=== PATIENT | female | born 1950 | race Caucasian/White ===

== ENCOUNTER → 2016-03-22 | Outpatient (CLI) | payer OTHER ==
[~2016-03-22] MED LIST: GLIM2TAB PO; LISI-519 PO; METF1000 PO; MULT-135 PO; OMEP20TA PO; PAXI20TA PO; VITA200013 PO
--- NOTE | 2016-03-22 10:51 | RADRPT ---
EXAM DATE/TIME: 03/22/2016 10:31 [facility] COMPARISON: No previous studies available for comparison. INDICATIONS : Evaluate for pneumonia, pneumothorax or communicable disease. Pre op for cyst removal on her left ov sunil 04-05-16 MEDICAL HISTORY : None. SURGICAL HISTORY : None. ENCOUNTER: Initial ACUITY: 1 day PAIN SCORE: 0/10 LOCATION: Bilateral chest FINDINGS: PA and lateral views of the chest demonstrate the lungs to be symmetrically aerated without evidence of mass, infiltrate or effusion. The cardiomediastinal contours are unremarkable. Osseous structure s are intact with mild scoliosis. Mild atherosclerotic calcifications are present in the aorta. CONCLUSION: No acute cardiopulmonary disease. Kenny Davis MD on March 22, 2016 at 10:50 Board Certified Radiologist. This report was verified electronically.
[2016-03-22 11:07] LABS: APTT (PATIENT) 26.4 SEC (24.3-30.1); INTERNATIONAL NORMALIZED RATIO 0.9 RATIO; PROTHROMBIN TIME - PATIENT 10.3 SEC (9.8-11.6)
[2016-03-22 11:09] LABS: BASOPHIL # 0.1 TH/MM3 (0-0.2); BASOPHIL % 0.9 % (0.0-2.0); EOSINOPHIL # 0.2 TH/MM3 (0-0.4); EOSINOPHIL % 1.5 % (0.0-4.0); HEMATOCRIT 39.2 % (35.0-46.0); HEMO FLAGS DIFF FINAL; LYMPH % 21.8 % (9.0-44.0); LYMPHOCYTE # 2.2 TH/MM3 (1.0-4.8); MEAN CELL VOLUME 90.2 FL (80.0-100.0); MEAN CORPUSCULAR HEMOGLOBIN 30.2 PG (27.0-34.0); MEAN CORPUSCULAR HGB CONC 33.4 % (32.0-36.0); MONO % 7.3 % (0.0-8.0); NEUT % 68.5 % (16.0-70.0); PLATELET COUNT 331 TH/MM3 (150-450); RED BLOOD COUNT 4.34 MIL/MM3 (4.00-5.30); RED CELL DISTRIBUTION WIDTH 13.8 % (11.6-17.2); WHITE BLOOD COUNT 10.2 TH/MM3 (4.0-11.0)
[2016-03-22 11:15] LABS: ALKALINE PHOSPHATASE 94 U/L (45-117); ALT (GPT) 97 U/L (10-53); ANION GAP 6 MEQ/L (5-15); AST (GOT) 61 U/L (15-37); BICARBONATE 28.9 MEQ/L (21.0-32.0); BLOOD UREA NITROGEN 17 MG/DL (7-18); CHLORIDE 102 MEQ/L (98-107); GLOMERULAR FILTRATION RATE 75 ML/MIN (>89); GLUCOSE,FASTING 121 MG/DL (74-99); POTASSIUM 4.2 MEQ/L (3.5-5.1); SODIUM (NA) 137 MEQ/L (136-145); TOTAL BILIRUBIN ADULT 0.4 MG/DL (0.2-1.0)
--- NOTE | 2016-03-22 13:39 | EKG ---
Date Performed: 03/22/2016 Time Performed: 09:56:33 PTAGE: 65 years EKG: Sinus rhythm RIGHT BUNDLE BRANCH BLOCK LEFT ANTERIOR FASCICULAR BLOCK MINIMAL VOLTAGE CRITERIA FOR LVH, CONSIDER NORMAL VARIANT POSSIBLE SEPTAL MYOCARDIAL INFARCTION, PROBABLY OLD ABNORMAL ECG NO PREVIOUS TRACING DOCTOR: Silvano Padilla Interpretating Date/Time 03/22/2016 13:37:31
== END ==
LOC: CPRE 09:20
PROVIDERS: ATTEND Obstetrics & Gynecology Gynecologic Oncology
DX: Z01.812 Encounter for preprocedural laboratory examination (principal); Z01.810 Encounter for preprocedural cardiovascular examination; Z01.811 Encounter for preprocedural respiratory examination; R19.09 Other intra-abdominal and pelvic swelling, mass and lump; I45.10 Unspecified right bundle-branch block; I44.4 Left anterior fascicular block; R94.31 Abnormal electrocardiogram [ECG] [EKG]
CPT/HCPCS: 36415; 71020; 80053; 85025; 85610; 85730; 93005

== ENCOUNTER 2016-05-03 05:29 | Inpatient (IN) | payer OTHER, MEDICARE ==
[~2016-05-03] VITALS: Ht 172.7 cm; Wt 76.6 kg
[2016-05-03] MEDS ORDERED: HEPARIN SODIUM - SQ 10,000 UNITS/ML VIAL SQ SCH (06:00)
[2016-05-03] MEDS ORDERED: METOPROLOL TARTRATE 25 MG TAB PO PRN (06:00)
[2016-05-03] MEDS ORDERED: INSULIN HUMAN REGULAR 1,000 UNITS/10 ML VIAL SQ PRN (06:00)
[2016-05-03] MEDS ORDERED: ceFAZolin 2 GM PREMIX 50 ML IV SCH (06:00)
[2016-05-03] MEDS: LACTATED RINGER'S 1000 ML IV SCH (06:10)
[2016-05-03 06:22] VITALS: BP 125/65; PULSE 67; RESP 16; TEMP 98; O2SAT 94
[2016-05-03 06:36] LABS: AUTOMATED NEUTROPHIL # 6.2 TH/MM3 (1.8-7.7); BASOPHIL # 0.1 TH/MM3 (0-0.2); EOSINOPHIL # 0.2 TH/MM3 (0-0.4); EOSINOPHIL % 2.4 % (0.0-4.0); HEMATOCRIT 37.7 % (35.0-46.0); HEMO FLAGS DIFF FINAL; LYMPH % 23.3 % (9.0-44.0); LYMPHOCYTE # 2.2 TH/MM3 (1.0-4.8); MEAN CELL VOLUME 90.4 FL (80.0-100.0); MEAN CORPUSCULAR HGB CONC 33.2 % (32.0-36.0); NEUT % 65.3 % (16.0-70.0); PLATELET COUNT 279 TH/MM3 (150-450); RED BLOOD COUNT 4.17 MIL/MM3 (4.00-5.30); RED CELL DISTRIBUTION WIDTH 13.6 % (11.6-17.2); WHITE BLOOD COUNT 9.5 TH/MM3 (4.0-11.0)
[2016-05-03 06:49] LABS: APTT (PATIENT) 27.5 SEC (24.3-30.1); PROTHROMBIN TIME - PATIENT 10.7 SEC (9.8-11.6)
[2016-05-03 06:54] LABS: ALKALINE PHOSPHATASE 78 U/L (45-117); TOTAL BILIRUBIN ADULT 0.5 MG/DL (0.2-1.0)
[2016-05-03] MEDS ORDERED: DEXAMETHASONE SOD PHOS 4 MG/ML VIAL ONE (07:20)
[2016-05-03] MEDS ORDERED: MIDAZOLAM HCL 2 MG/2 ML VIAL ONE (07:20)
[2016-05-03] MEDS ORDERED: FAMOTIDINE 20 MG/2 ML VIAL ONE (07:20)
[2016-05-03 07:21] LABS: ALT (GPT) 108 U/L (10-53); ANION GAP 9 MEQ/L (5-15); AST (GOT) 85 U/L (15-37); BLOOD UREA NITROGEN 17 MG/DL (7-18); CHLORIDE 106 MEQ/L (98-107); GLOMERULAR FILTRATION RATE 88 ML/MIN (>89); SODIUM (NA) 140 MEQ/L (136-145)
[2016-05-03] MEDS ORDERED: HYDROmorphone HCL PF 2 MG/ML VIAL ONE (07:21)
[2016-05-03] MEDS ORDERED: ACETAMINOPHEN 1000 MG/100 ML VIAL IV ONE ×3 (07:21→18:30)
[2016-05-03] MEDS ORDERED: DICLOFENAC SODIUM 37.5 MG/ML VIAL IV PUSH ONE (07:21)
[2016-05-03] MEDS: SODIUM CHLORID 0.9% 500 ML IV SCH (07:30)
[2016-05-03] MEDS ORDERED: LIDOCAINE 1%/EPINEPHrine 1:100,000 SOLN 30 ML VIAL INFIL ONE (08:30)
[2016-05-03] MEDS ORDERED: diphenhydrAMINE HCL 25 MG CAP PO PRN (10:15)
[2016-05-03] MEDS ORDERED: oxyCODONE/ACETAMINOPHEN 5 MG/325 MG TAB PO PRN (10:15)
[2016-05-03] MEDS ORDERED: ONDANSETRON HCL 4 MG/2 ML VIAL IVP PRN (10:15)
[2016-05-03] MEDS ORDERED: SODIUM CHLORIDE 0.9% FLUSH 10 ML FLUSH IV FLUSH PRN (10:15)
[2016-05-03] MEDS ORDERED: PILL SPLITTER OTHER PRN (10:30)
[2016-05-03] MEDS ORDERED: *RESP: ALBUTEROL 2.5 MG/3 ML NEB (PRN) PERIprocedural Use ONLY NEB ONE ×2 (10:51→15:54)
[2016-05-03 10:55] VITALS: O2SAT 97
[2016-05-03] MEDS ORDERED: D5-1/2 NS + KCL 20 MEQ INJ 1,000 ML IV SCH (11:00)
[2016-05-03] MEDS: KETOROLAC TROMETHAMINE 30 MG/ML (IVP) VIAL IVP SCH (11:00)
[2016-05-03] MEDS ORDERED: FUROSEMIDE 20 MG/2 ML VIAL ONE (11:01)
[2016-05-03 11:02] VITALS: O2SAT 95
[2016-05-03] MEDS ORDERED: fentaNYL CITRATE 250 MCG/5 ML AMP ONE (11:03)
[2016-05-03] MEDS ORDERED: FUROSEMIDE 20 MG/2 ML VIAL IV PUSH ONE (11:30)
--- NOTE | 2016-05-03 11:31 | RADRPT ---
EXAM DATE/TIME: 05/03/2016 10:51 [facility] COMPARISON: CHEST PA & LAT, March 22, 2016, 10:31. INDICATIONS : Low O2 saturations post op laporotomy MEDICAL HISTORY : None. SURGICAL HISTORY : robot laporotomy to resect mass ENCOUNTER: Initial ACUITY: 1 day PAIN SCORE: Non-responsive. LOCATION: Bilateral chest FINDINGS: A single view of the chest demonstrates interval development of diffuse interstitial prominence possi ria representing some degree of interstitial edema or vascular congestion. Minimal atelectatic change s in the left lingula and right lung base. Rounded density in the right upper lobe may be related to the costochondral junction of the anterior first rib. Osseous structures are otherwise intact heart s ize is normal CONCLUSION: 1. Interval element of bilateral interstitial prominence possibly representing some degree of interst itial edema and/or volume overload. 2. Minimal atelectatic changes above the right hemidiaphragm and left lingular regions. 3. Dense rounded structure in the right upper lobe may be related to the costochondral junction of th e anterior first rib. Isaiah Veronica MD on May 03, 2016 at 11:24 Board Certified Radiologist. This report was verified electronically.
[2016-05-03 11:53] LABS: BLOOD GAS BASE EXCESS -2.2 mmol/L (-2-2); BLOOD GAS CARBOXYHEMOGLOBIN 1.1 % (0-4); BLOOD GAS HCO3 24 mmol/L (22-26); BLOOD GAS METHEMOGLOBIN 1.7 % (0-2); BLOOD GAS O2 HGB SATURATION 91 % (90-100); BLOOD GAS OXYGEN CONTENT 17.2 Vol % (12.0-20.0); BLOOD GAS PCO2 51 mmHg (38-42); BLOOD GAS PO2 83 mmHg (61-120); BLOOD GAS TOTAL HGB 13.3 G/DL (12.0-16.0); CRITICAL VALUE YES; DRAW SITE RT RADIAL; FIO2 100 %; NUMBER OF ARTERIAL PUNCTURES 1; OXYGEN DEVICE BiPAP; STAT YES; TEMP CORR TO 98.6; ULNAR PULSE PRESENT; VENT SETTINGS IPAP 15 EPAP 5 PS 10
[2016-05-03] MEDS ORDERED: SODIUM CHLOR 0.9% 1000 ML INJ 1,000 ML IV ONE (12:00)
[2016-05-03] MEDS ORDERED: SUGAMMADEX SODIUM 200 MG/2 ML VIAL IV PUSH ONE ×2 (12:00)
[2016-05-03] MEDS ORDERED: ONDANSETRON HCL 4 MG/2 ML VIAL IV PUSH ONE (12:00)
[2016-05-03] MEDS ORDERED: PROPOFOL 200 MG/20 ML AMP IV ONE (12:00)
[2016-05-03] MEDS ORDERED: DIMETHICONE/OXYBENZONE/PADMIATE LIP BALM 4.25 GM ONE (14:35)
[2016-05-03] MEDS ORDERED: MAGNESIUM OXIDE 400 MG TAB PO PRN (15:00)
[2016-05-03] MEDS ORDERED: POTASSIUM PHOSPHATE MONOBASIC 500 MG TAB PO PRN (15:00)
[2016-05-03] MEDS ORDERED: POTASSIUM PHOSPHATE MONOBASIC 500 MG TAB PO/TUBE PRN (15:00)
[2016-05-03] MEDS ORDERED: POTASSIUM CHLOR 20 MEQ PREMIX 100 ML IV PRN ×2 (15:00)
[2016-05-03] MEDS ORDERED: MAGNESIUM SULFATE INJ 2 GM in SODIUM CHLORIDE 0.9% INJ 96 ML IV PRN (15:00)
[2016-05-03] MEDS ORDERED: POTASSIUM PHOSPHATE INJ 30 MMOL in SODIUM CHLOR 0.9% 250 ML INJ 250 ML IV PRN (15:00)
[2016-05-03] MEDS ORDERED: POTASSIUM CHLOR 40 MEQ PREMIX 100 ML IV PRN ×2 (15:00)
[2016-05-03] MEDS ORDERED: DEXTROSE 50% IN WATER 50 ML VIAL(D50) IV PUSH PRN (15:00)
[2016-05-03] MEDS ORDERED: SODIUM PHOSPHATE INJ 30 MMOL in SODIUM CHLOR 0.9% 250 ML INJ 240 ML IV PRN (15:00)
[2016-05-03] MEDS ORDERED: MAGNESIUM SULFATE INJ 4 GM in SODIUM CHLORIDE 0.9% INJ 92 ML IV PRN (15:00)
--- NOTE | 2016-05-03 15:07 | PD.CONS ---
[facility] Service Critical Care Medicine Consult Requested By Dr. Zacarias Reason for Consult post-op hypoxia Primary Care Physician Ju Jarrett M.D. History of Present Illness This is a 65yF with past medical history significant for diabetes, prior smoking use, and ovarian mass who is now postop day 0 status post laparoscopic salpingo-oophorectomy. At the conclusion of the operative case she was extubated and taken to PACU where she was noted to be cyanotic with SPO2 in the 40s. She was noted to be obstructing. She was placed on oxygen. Despite this she remained hypoxic and was placed on a BiPAP mask which improved her hypoxia. Stat chest x-ray revealed bilateral infiltrates significant for probable pulmonary edema. She continued slowly improve on BiPAP, but continued to desat off BiPAP. Anesthesia's clinical impression was that this was christine-emergence laryngospasm with associated negative pressure pulmonary edema. She was given a dose of Lasix in the PACU and had appropriate diuresis with this. Critical- care medicine is consulted to evaluate and manage her hypoxemia. The anesthesia and surgery teams feel that an ICU stay is warranted with noninvasive positive pressure ventilation overnight. I agree with this assessment. When I evaluated the patient, she was awake and alert. She denied any chest pain, shortness of breath. She doesn't endorse mild generalized abdominal pain. She denies other complaints. It is somewhat difficult to understand the patient given that she is wearing BiPAP at the moment and is slightly tachypneic Review of Systems Constitutional: DENIES: Diaphoretic episodes, Fever, Chills Respiratory: DENIES: Cough, Sputum production, Shortness of breath Cardiovascular: DENIES: Chest pain, Syncope, Lower Extremity Edema Gastrointestinal: COMPLAINS OF: Abdominal pain, DENIES: Nausea, Vomiting Psychiatric: DENIES: Anxiety Past Family Social History Allergies: Coded Allergies: No Known Allergies (Unverified , 03/22/16) Past Medical History Diabetes Past Surgical History Remote history of tubal ligation Postop day 0 status post salpingo-oophorectomy Reported Medications Metformin Active Ordered Medications See MAR Family History No family history of lung disease Social History Prior smoker and quit approximately 2 months ago. A glass of wine very rarely. Denies other drugs. Physical Exam Vital Signs Vital Signs Date Time Temp Pulse Resp B/P Pulse Ox O2 Delivery O2 Flow Rate FiO2 05/03/16 14:00 79 12 128/79 95 Bi-Pap 50 05/03/16 13:00 75 12 125/70 95 Bi-Pap 50 05/03/16 12:00 80 10 139/75 95 Bi-Pap 100 05/03/16 11:45 87 10 147/83 93 Bi-Pap 100 05/03/16 11:30 88 10 153/83 93 Bi-Pap 100 05/03/16 11:15 88 10 150/88 94 Bi-Pap 100 05/03/16 11:02 95 100 05/03/16 11:00 90 10 153/84 96 Bi-Pap 100 05/03/16 10:55 97 100 05/03/16 10:45 95 8 164/84 85 Non-Rebreather 100 05/03/16 10:34 95 8 86 Non-Rebreather 100 05/03/16 10:30 95 8 157/82 79 Simple Mask 10 05/03/16 10:28 97.7 97 8 186/85 82 Simple Mask 10 05/03/16 06:22 98.0 67 16 125/65 94 Physical Exam GENERAL: Elderly female, lying in bed, mild distress due to hypoxia HEENT:. atraumatic. pupils equal, round, reactive, conjugate. mucous membranes are moist. bipap is in place NECK: Trachea is midline. There is no JVD. CHEST: Mildly labored respirations. Mildly tachypneic. Clear to auscultation. BiPAP 15/8/40% CARDIOVASCULAR: Normal rate, regular rhythm. No appreciable murmurs. ABDOMEN: Abdomen is soft, mildly and appropriately tender to palpation. There is no rebound or guarding. She has evidence of small laparoscopic incisions with Steri-Strips. These are clean, dry. MUSCULOSKELETAL: No peripheral edema. Distal pulses 2+. Extremities are warm and well-perfused. NEUROLOGICAL: RASS 0. Follows commands all 4 extremity's. No focal motor or sensory deficits. Laboratory Laboratory Tests Test 05/03/16 05/03/16 06:10 11:47 White Blood Count 9.5 Red Blood Count 4.17 Hemoglobin 12.5 Hematocrit 37.7 Mean Corpuscular Volume 90.4 Mean Corpuscular Hemoglobin 30.0 Mean Corpuscular Hemoglobin 33.2 Concent Red Cell Distribution Width 13.6 Platelet Count 279 Mean Platelet Volume 8.5 Neutrophils (%) (Auto) 65.3 Lymphocytes (%) (Auto) 23.3 Monocytes (%) (Auto) 8.0 Eosinophils (%) (Auto) 2.4 Basophils (%) (Auto) 1.0 Neutrophils # (Auto) 6.2 Lymphocytes # (Auto) 2.2 Monocytes # (Auto) 0.8 Eosinophils # (Auto) 0.2 Basophils # (Auto) 0.1 CBC Comment DIFF FINAL Differential Comment Prothrombin Time 10.7 Prothromb Time International 1.0 Ratio Activated Partial 27.5 Thromboplast Time Sodium Level 140 Potassium Level 4.0 Chloride Level 106 Carbon Dioxide Level 25.0 Anion Gap 9 Blood Urea Nitrogen 17 Creatinine 0.67 Estimat Glomerular Filtration 88 Rate Random Glucose 158 Calcium Level 9.1 Total Bilirubin 0.5 Aspartate Amino Transf 85 (AST/SGOT) Alanine Aminotransferase 108 (ALT/SGPT) Alkaline Phosphatase 78 Total Protein 7.5 Albumin 3.8 Blood Type O POSITIVE Antibody Screen NEGATIVE Blood Bank Comment Blood Gas Puncture Site RT RADIAL Blood Gas Patient Temperature 98.6 Blood Gas HCO3 24 Blood Gas Base Excess -2.2 Blood Gas Oxygen Saturation 91 Arterial Blood pH 7.28 Arterial Blood Partial 51 Pressure CO2 Arterial Blood Partial 83 Pressure O2 Arterial Blood Oxygen Content 17.2 Arterial Blood 1.1 Carboxyhemoglobin Arterial Blood Methemoglobin 1.7 Blood Gas Hemoglobin 13.3 Oxygen Delivery Device BiPAP Blood Gas Ventilator Setting IPAP 15 EPAP 5 PS 10 Blood Gas Inspired Oxygen 100 Result Diagram: 05/03/16 0610 05/03/16 0610 Imaging Last 24 hours Impressions Chest X-Ray 05/03/16 0000 Signed Impressions: Service Date/Time: April 10:51 - CONCLUSION: 1. Interval element of bilateral interstitial prominence possibly representing some degree of interstitial edema and/or volume overload. 2. Minimal atelectatic changes above the right hemidiaphragm and left lingular regions. 3. Dense rounded structure in the right upper lobe may be related to the costochondral junction of the anterior first rib. Isaiah Veronica MD Assessment and Plan Assessment and Plan Assessment: This is a 65-year-old female who is now postop day 0 status post laparoscopic salpingo-oophorectomy whose course has been complicated by perioperative hypoxemia which by clinical history is likely to be laryngospasm with associated negative pressure pulmonary edema. The patient is already clinically improving on noninvasive positive pressure ventilation. I agree with the gentle diuresis as is been instituted in the PACU and with continued noninvasive positive pressure ventilation. I agree that she should be watched in the intensive care unit setting overnight. Active problems: Negative pressure pulmonary edema Acute hypoxic respiratory failure requiring noninvasive positive pressure ventilation Diabetes Hyperglycemia of Critical Illness Plan: Admit to the ICU Continue BiPAP at current settings as these are helping to clinically improve the patient Clear liquid diet Given her elevated blood glucose level, we will start medium scale sliding scale insulin every 6 hours We will stop her maintenance fluids as we are attempting gentle diuresis Continue Todd for tonight with anticipation of discontinuing this in the morning Head of bed at 60-90 at all times We will consider a re-dose of Lasix later this evening, but she has had good response is recently postoperative do not want to over diuresis her. There is no evidence that steroids improve negative pressure pulmonary edema and by clinical exam, there was no laryngeal edema reported by the anesthesiologist. Given her diabetes I think the risk-benefit ratios in favor of holding off on steroids at this time. Code Status Full Code Discussed Condition With Attending anesthesiologist, surgical team, BULK SAUSAGE CASING TIER OFF, PACU activity therapy teacher. Edmundo Kaur MD May 03, 2016 15:07
[2016-05-03] MEDS: INSULIN NovoLIN REGULAR SUPPLEMENTAL SCALE SQ SCH (18:00)
[2016-05-03] MEDS: LORazepam 0.5 MG TAB PO PRN (19:10)
[2016-05-03] MEDS: SODIUM CHLORIDE 0.9% FLUSH 10 ML FLUSH IV FLUSH SCH (21:00)
[2016-05-03] MEDS: PANTOPRAZOLE SOD 20 MG DELAYED RELEASE TAB PO SCH (21:00)
[2016-05-04] VITALS (9 sets, daily range): BP systolic 105–128; BP diastolic 53–77; PULSE 78–86; RESP 17–21; TEMP 96.7–98.6; O2SAT 92–98
[2016-05-04] MEDS: SODIUM CHLORID 0.9% 500 ML IV SCH (00:10)
[2016-05-04 04:10] LABS: AUTOMATED NEUTROPHIL # 13.2 TH/MM3 (1.8-7.7); BASOPHIL % 0.3 % (0.0-2.0); EOSINOPHIL % 0.1 % (0.0-4.0); HEMATOCRIT 34.5 % (35.0-46.0); HEMO FLAGS DIFF FINAL; LYMPH % 13.7 % (9.0-44.0); LYMPHOCYTE # 2.2 TH/MM3 (1.0-4.8); MEAN CORPUSCULAR HEMOGLOBIN 29.8 PG (27.0-34.0); MEAN CORPUSCULAR HGB CONC 32.7 % (32.0-36.0); MONO % 4.7 % (0.0-8.0); NEUT % 81.2 % (16.0-70.0); PLATELET COUNT 254 TH/MM3 (150-450); RED BLOOD COUNT 3.79 MIL/MM3 (4.00-5.30); RED CELL DISTRIBUTION WIDTH 13.7 % (11.6-17.2); WHITE BLOOD COUNT 16.3 TH/MM3 (4.0-11.0)
[2016-05-04 04:34] LABS: BICARBONATE 29.7 MEQ/L (21.0-32.0); POTASSIUM 4.2 MEQ/L (3.5-5.1)
[2016-05-04] MEDS: KETOROLAC TROMETHAMINE 30 MG/ML (IVP) VIAL IVP SCH (05:00)
--- NOTE | 2016-05-04 05:30 | RADRPT ---
EXAM DATE/TIME: 05/04/2016 03:44 [facility] COMPARISON: CHEST SINGLE AP, May 03, 2016, 10:51. INDICATIONS : Evaluate for atelectasis. MEDICAL HISTORY : None. SURGICAL HISTORY : robot laporotomy to resect mass ENCOUNTER: Subsequent ACUITY: 2 days PAIN SCORE: 0/10 LOCATION: chest FINDINGS: A single portable frontal view of the chest shows persistent interstitial prominence of the lungs mor e pronounced within the left base. There has been some improvement in the appearance. Linear atelecta sis within the medial left lung base. No effusions observed. Cardiac silhouette is at the upper range of normal. Mild scoliotic curvature of the thoracic spine. CONCLUSION: Some improvement in the interstitial prominence. Pulmonary edema most likely the etiology. Mild left basilar atelectasis. Aftab Barakat Jr., MD on May 04, 2016 at 5:27 Board Certified Radiologist. This report was verified electronically.
[2016-05-04] MEDS: INSULIN NovoLIN REGULAR SUPPLEMENTAL SCALE SQ SCH ×5 (06:00→22:37)
[2016-05-04] MEDS ORDERED: FUROSEMIDE 40 MG/4 ML VIAL IV PUSH ONE (06:30)
[2016-05-04] MEDS: LACTATED RINGER'S 1000 ML IV SCH (07:30)
[2016-05-04] MEDS: ACETAMINOPHEN 325 MG TAB PO PRN (07:58)
[2016-05-04] MEDS: PARoxetine HCL 20 MG TAB PO SCH (08:58)
[2016-05-04] MEDS: PANTOPRAZOLE SOD 20 MG DELAYED RELEASE TAB PO SCH ×2 (08:59→20:43)
[2016-05-04] MEDS: SODIUM CHLORIDE 0.9% FLUSH 10 ML FLUSH IV FLUSH SCH ×2 (08:59→20:49)
[2016-05-04] MEDS: LISINOPRIL 5 MG TAB PO SCH (08:59)
--- NOTE | 2016-05-04 15:05 | HHI.CCPN ---
Subjective Remarks/Hospital Course Hospital Course: This is a 65yF with past medical history significant for diabetes, prior smoking use, and ovarian mass who is now postop day 0 status post laparoscopic salpingo-oophorectomy. At the conclusion of the operative case she was extubated and taken to PACU where she was noted to be cyanotic with SPO2 in the 40s. She was noted to be obstructing. She was placed on oxygen. Despite this she remained hypoxic and was placed on a BiPAP mask which improved her hypoxia. Stat chest x-ray revealed bilateral infiltrates significant for probable pulmonary edema. She continued slowly improve on BiPAP, but continued to desat off BiPAP. Anesthesia's clinical impression was that this was christine-emergence laryngospasm with associated negative pressure pulmonary edema. She was given a dose of Lasix in the PACU and had appropriate diuresis with this. Critical- care medicine is consulted to evaluate and manage her hypoxemia. The anesthesia and surgery teams feel that an ICU stay is warranted with noninvasive positive pressure ventilation overnight. I agree with this assessment. When I evaluated the patient, she was awake and alert. She denied any chest pain, shortness of breath. She doesn't endorse mild generalized abdominal pain. She denies other complaints. It is somewhat difficult to understand the patient given that she is wearing BiPAP at the moment and is slightly tachypneic Subjective: 05/04: much improved oxygenation. off BiPAP. remains on 2L o2 by NC with spo2 91% . still slightly net +. adding additional lasix. Objective Vital Signs Date Time Temp Pulse Resp B/P Pulse Ox O2 Delivery O2 Flow Rate FiO2 05/04/16 12:00 98.6 84 20 105/59 95 05/04/16 05:55 Nasal Cannula 4 05/03/16 18:00 40 Intake and Output 05/03/16 05/03/16 05/04/16 08:00 16:00 00:00 Intake Total 2143 ml 275 ml Output Total 880 ml 240 ml Balance 1263 ml 35 ml Result Diagram: 05/04/16 0344 05/04/16 0344 Imaging Last 24 hours Impressions Chest X-Ray 05/03/16 0000 Signed Impressions: Service Date/Time: April 10:51 - CONCLUSION: 1. Interval element of bilateral interstitial prominence possibly representing some degree of interstitial edema and/or volume overload. 2. Minimal atelectatic changes above the right hemidiaphragm and left lingular regions. 3. Dense rounded structure in the right upper lobe may be related to the costochondral junction of the anterior first rib. Isaiah Veronica MD Objective Remarks GENERAL: Elderly female,sitting up in bed, no acute distress. HEENT:. atraumatic. pupils equal, round, reactive, conjugate. mucous membranes are moist. NECK: Trachea is midline. There is no JVD. CHEST: unlabored. CTA. 2L o2. CARDIOVASCULAR: Normal rate, regular rhythm. No appreciable murmurs. ABDOMEN: Abdomen is soft, mildly and appropriately tender to palpation. There is no rebound or guarding. MUSCULOSKELETAL: No peripheral edema. Distal pulses 2+. Extremities are warm and well-perfused. NEUROLOGICAL: RASS 0. Follows commands all 4 extremities. A/P Assessment and Plan Assessment: This is a 65-year-old female POD 1 s/p laparoscopic salpingo- oophorectomy, course complicated by negative pressure pulmonary edema on emergence of anesthesia. Clinically improving. I am not sure if she will be able to go home today as she still has a slight o2 requirement. We will give additional dose of lasix today and monitor her. I think she is stable for transfer to floor today. I have discussed this with Dr. Zacarias who agrees. Active problems: Negative pressure pulmonary edema- resolving. Acute hypoxic respiratory failure requiring noninvasive positive pressure ventilation- resolved. Diabetes Hyperglycemia of Critical Illness Plan: --transfer to floor --wean o2 by NC for goal spo2 > 90%. -- regular diet as tolerated. -- SSI, med scale, ACHS. -- will need outpatient follow up with non-contrasted Chest CT for ? right upper lobe mass. -- Lasix 40mg iv x 1 this morning. Edmundo Kaur MD May 04, 2016 15:05
[2016-05-04] MEDS: oxyCODONE/ACETAMINOPHEN 5 MG/325 MG TAB PO PRN ×2 (18:42→22:46)
[2016-05-05] VITALS (8 sets, daily range): BP systolic 99–120; BP diastolic 55–92; PULSE 74–90; RESP 17–18; TEMP 97.7–99.5; O2SAT 90–94
[2016-05-05] MEDS: INSULIN NovoLIN REGULAR SUPPLEMENTAL SCALE SQ SCH ×3 (06:00→17:28)
[2016-05-05] MEDS ORDERED: FUROSEMIDE 40 MG/4 ML VIAL IV PUSH ONE (06:30)
[2016-05-05] MEDS: LACTATED RINGER'S 1000 ML IV SCH (07:30)
[2016-05-05 08:08] LABS: BICARBONATE 25.9 MEQ/L (21.0-32.0); POTASSIUM 3.4 MEQ/L (3.5-5.1)
[2016-05-05] MEDS: SODIUM CHLORIDE 0.9% FLUSH 10 ML FLUSH IV FLUSH SCH ×2 (09:00→19:38)
[2016-05-05] MEDS: ACETAMINOPHEN 325 MG TAB PO PRN (09:39)
[2016-05-05] MEDS: LISINOPRIL 5 MG TAB PO SCH (09:39)
[2016-05-05] MEDS: PARoxetine HCL 20 MG TAB PO SCH (09:41)
[2016-05-05] MEDS: PANTOPRAZOLE SOD 20 MG DELAYED RELEASE TAB PO SCH ×2 (09:41→19:34)
--- NOTE | 2016-05-05 11:57 | PD.ONC.PN ---
Subjective Subjective Remarks patient wants to go home Objective Data Date Time Temp Pulse Resp B/P Pulse Ox O2 Delivery O2 Flow Rate FiO2 05/05/16 10:17 92 Nasal Cannula 3.00 05/05/16 08:00 98.5 78 18 111/59 94 05/05/16 04:00 98.0 85 17 109/55 92 05/05/16 00:00 98.2 84 17 99/92 90 05/04/16 21:00 92 Nasal Cannula 2.00 40 05/04/16 20:00 96.7 86 17 113/53 92 05/04/16 20:00 18 05/04/16 18:32 98.0 86 18 109/56 94 05/04/16 16:00 98.6 78 21 105/53 92 05/04/16 16:00 78 05/04/16 15:40 95 Nasal Cannula 2.00 05/04/16 14:00 81 05/04/16 12:00 98.6 84 20 105/59 95 05/04/16 12:00 84 05/05/16 05/05/16 05/05/16 07:00 15:00 23:00 Intake Total 240 ml Output Total 550 ml Balance -310 ml Result Diagram: 05/04/16 0344 05/05/16 0711 Laboratory Results Laboratory Tests Test 05/05/16 07:11 Sodium Level 138 MEQ/L Potassium Level 3.4 MEQ/L Chloride Level 104 MEQ/L Carbon Dioxide Level 25.9 MEQ/L Anion Gap 8 MEQ/L Blood Urea Nitrogen 17 MG/DL Creatinine 0.73 MG/DL Estimat Glomerular Filtration 80 ML/MIN Rate Random Glucose 166 MG/DL Calcium Level 8.9 MG/DL Administered Medications Medications (Trade) Dose Ordered Sig/Nirav Route PRN Reason Start Time Stop Time Status Last Admin Dose Admin Lactated Ringer's (Lr 1000 ml Inj) 1,000 ml @ 30 mls/hr Q24H IV 05/03/16 07:30 05/03/16 06:10 Lisinopril (Prinivil) 5 mg DAILY PO 05/04/16 09:00 05/05/16 09:39 Paroxetine HCl (Paxil) 20 mg DAILY PO 05/04/16 09:00 05/05/16 09:41 Pantoprazole Sodium (Protonix) 20 mg BID PO 05/03/16 21:00 05/05/16 09:41 Sodium Chloride (NS Flush) 2 ml BID IV FLUSH 05/03/16 21:00 05/05/16 09:00 Oxycodone/ Acetaminophen (Percocet 5-325 Mg) 1 tab Q4H PRN PO PAIN SCALE 1 TO 5 05/03/16 10:15 05/04/16 13:37 Oxycodone/ Acetaminophen (Percocet 5-325 Mg) 2 tab Q4H PRN PO PAIN SCALE 6 TO 10 05/03/16 10:15 05/04/16 22:46 Lorazepam (Ativan) 0.25 mg Q8H PRN PO ANXIETY 05/03/16 10:15 05/03/16 19:10 Acetaminophen (Tylenol) 650 mg Q6H PRN PO PAIN 1-10 05/04/16 07:45 05/05/16 09:39 Objective Remarks GENERAL: Well-nourished, well-developed patient. has nasal canula SKIN: Warm and dry. HEAD: Normocephalic. EYES: No scleral icterus. No injection or drainage. NECK: Supple, trachea midline. No JVD or lymphadenopathy. LYMPHATIC: No adenopathy. CARDIOVASCULAR: Regular rate and rhythm without murmurs. RESPIRATORY: few basilar rales. GASTROINTESTINAL: Abdomen mild distention EXTREMITIES: trace edema MUSCULOSKELETAL: Adequate muscle tone. NEUROLOGICAL: No obvious focal deficit. Awake, alert, and oriented x3. PSYCHIATRIC: angry as she wants to go home today Assessment/Plan Assessment 1: O2 sat at rest off oxygen 90-91%.. I had the patient walk [place] and down the [place] with nursing staff and the O2 sat dropped to 79 % and it took several minutes to get to 88% and the oxygen resume and stat went to 91%. She was overtly sob at the end of the walk. I told her she is not ready for discharge. I contacted critical care, Dr. Kaur- critical care and reviewed the findings with him. She needs to stay. except for the respiratory problem she is doing well but the numbers are not good. Ulysses Bee MD May 05, 2016 11:57
--- NOTE | 2016-05-05 14:42 | HHI.CCPN ---
Subjective Remarks/Hospital Course Hospital Course: This is a 65yF with past medical history significant for diabetes, prior smoking use, and ovarian mass who is now postop day 0 status post laparoscopic salpingo-oophorectomy. At the conclusion of the operative case she was extubated and taken to PACU where she was noted to be cyanotic with SPO2 in the 40s. She was noted to be obstructing. She was placed on oxygen. Despite this she remained hypoxic and was placed on a BiPAP mask which improved her hypoxia. Stat chest x-ray revealed bilateral infiltrates significant for probable pulmonary edema. She continued slowly improve on BiPAP, but continued to desat off BiPAP. Anesthesia's clinical impression was that this was christine-emergence laryngospasm with associated negative pressure pulmonary edema. She was given a dose of Lasix in the PACU and had appropriate diuresis with this. Critical- care medicine is consulted to evaluate and manage her hypoxemia. The anesthesia and surgery teams feel that an ICU stay is warranted with noninvasive positive pressure ventilation overnight. I agree with this assessment. When I evaluated the patient, she was awake and alert. She denied any chest pain, shortness of breath. She doesn't endorse mild generalized abdominal pain. She denies other complaints. It is somewhat difficult to understand the patient given that she is wearing BiPAP at the moment and is slightly tachypneic Subjective: 05/04: much improved oxygenation. off BiPAP. remains on 2L o2 by NC with spo2 91% . still slightly net +. adding additional lasix. 05/05: still on 1L o2 by NC, when off o2, desats to 70s% with walking. she still persistently asks to go home, and does not understand why have to keep her an extra day. otherwise, minimal abdominal pain. Objective Vital Signs Date Time Temp Pulse Resp B/P Pulse Ox O2 Delivery O2 Flow Rate FiO2 05/05/16 12:00 98.3 74 18 112/59 93 05/05/16 11:54 Nasal Cannula 3.00 05/04/16 21:00 40 Intake and Output 05/04/16 05/04/16 05/05/16 08:00 16:00 00:00 Intake Total 240 ml 240 ml Output Total 350 ml 2100 ml 240 ml Balance -350 ml -1860 ml 0 ml Result Diagram: 05/04/16 0344 05/05/16 0711 Imaging Last 24 hours Impressions Chest X-Ray 05/03/16 0000 Signed Impressions: Service Date/Time: April 10:51 - CONCLUSION: 1. Interval element of bilateral interstitial prominence possibly representing some degree of interstitial edema and/or volume overload. 2. Minimal atelectatic changes above the right hemidiaphragm and left lingular regions. 3. Dense rounded structure in the right upper lobe may be related to the costochondral junction of the anterior first rib. Isaiah Veronica MD Objective Remarks GENERAL: Elderly female,sitting up in bed, no acute distress. HEENT:. atraumatic. pupils equal, round, reactive, conjugate. mucous membranes are moist. NECK: Trachea is midline. There is no JVD. CHEST: unlabored. CTA. 1L o2. CARDIOVASCULAR: Normal rate, regular rhythm. No appreciable murmurs. ABDOMEN: Abdomen is soft, mildly and appropriately tender to palpation. There is no rebound or guarding. MUSCULOSKELETAL: No peripheral edema. Distal pulses 2+. Extremities are warm and well-perfused. NEUROLOGICAL: RASS 0. Follows commands all 4 extremities. A/P Assessment and Plan Assessment: This is a 65-year-old female POD 2 s/p laparoscopic salpingo- oophorectomy, course complicated by negative pressure pulmonary edema on emergence of anesthesia. Clinically improving. I am not sure if she will be able to go home today as she still has a slight o2 requirement. We will give additional dose of lasix today and monitor her. I will also have pulmonology see her to eval if there is a chronic component to her hypoxia, likely secondary to her smoking history. Active problems: Negative pressure pulmonary edema- resolving. Acute hypoxic respiratory failure requiring noninvasive positive pressure ventilation- resolved. Diabetes Hyperglycemia of Critical Illness Plan: --wean o2 by NC for goal spo2 > 90%. -- regular diet as tolerated. -- SSI, med scale, ACHS. -- will need outpatient follow up with non-contrasted Chest CT for ? right upper lobe mass. -- Lasix 40mg iv x 1 this morning. Edmundo Kaur MD May 05, 2016 14:41
[2016-05-05] MEDS: LORazepam 0.5 MG TAB PO PRN (15:34)
[2016-05-05] MEDS: RESP: ALBUTEROL 2.5 MG/IPRATROPIUM 0.5 MG NEB (SCH) NEB ×2 (16:37→21:28)
[2016-05-05 19:10] LABS: AUTOMATED NEUTROPHIL # 11.6 TH/MM3 (1.8-7.7); BASOPHIL # 0.1 TH/MM3 (0-0.2); BASOPHIL % 0.7 % (0.0-2.0); EOSINOPHIL # 0.1 TH/MM3 (0-0.4); EOSINOPHIL % 0.7 % (0.0-4.0); HEMATOCRIT 36.6 % (35.0-46.0); HEMO FLAGS DIFF FINAL; LYMPH % 13.8 % (9.0-44.0); MEAN CELL VOLUME 91.2 FL (80.0-100.0); MEAN CORPUSCULAR HEMOGLOBIN 29.6 PG (27.0-34.0); MEAN CORPUSCULAR HGB CONC 32.5 % (32.0-36.0); MONO % 6.3 % (0.0-8.0); NEUT % 78.5 % (16.0-70.0); PLATELET COUNT 274 TH/MM3 (150-450); RED BLOOD COUNT 4.02 MIL/MM3 (4.00-5.30); RED CELL DISTRIBUTION WIDTH 13.6 % (11.6-17.2); WHITE BLOOD COUNT 14.8 TH/MM3 (4.0-11.0)
[2016-05-05 19:35] LABS: BICARBONATE 28.7 MEQ/L (21.0-32.0); POTASSIUM 3.5 MEQ/L (3.5-5.1)
[2016-05-05] MEDS: oxyCODONE/ACETAMINOPHEN 5 MG/325 MG TAB PO PRN (22:56)
[2016-05-06] VITALS: BP 125/58; PULSE 88; RESP 18; TEMP 97.2; O2SAT 92
[2016-05-06 04:00] VITALS: BP 117/60; PULSE 73; RESP 17; TEMP 96.8; O2SAT 94
[2016-05-06] MEDS: INSULIN NovoLIN REGULAR SUPPLEMENTAL SCALE SQ SCH ×3 (06:00→12:00)
--- NOTE | 2016-05-06 06:22 | RADRPT ---
EXAM DATE/TIME: 05/06/2016 05:46 [facility] COMPARISON: CHEST SINGLE AP, May 04, 2016, 3:44. INDICATIONS : Edema. Short of breath. MEDICAL HISTORY : None. SURGICAL HISTORY : None. ENCOUNTER: Initial ACUITY: 2 days PAIN SCORE: 6/10 LOCATION: Bilateral chest FINDINGS: A single view of the chest demonstrates the lungs to be symmetrically aerated without evidence of mas s, infiltrate or effusion. Top normal heart size. Osseous structures are intact. CONCLUSION: No acute disease. Aftab Barakat Jr., MD on May 06, 2016 at 6:20 Board Certified Radiologist. This report was verified electronically.
[2016-05-06] MEDS: LACTATED RINGER'S 1000 ML IV SCH (07:30)
[2016-05-06 08:00] VITALS: BP 120/62; PULSE 85; RESP 16; O2SAT 92
--- NOTE | 2016-05-06 08:01 | MB ---
cc: DALILA WASHINGTON ALEXANDER S. MD MOLPUS,RICA Stone MD DATE OF CONSULTATION: 05/05/2016 REASON FOR CONSULTATION: Hypoxia and pulmonary edema. HISTORY OF PRESENT ILLNESS: This is a 65 year-old female who has had a past history of diabetes and history of chronic obstructive pulmonary disease with longstanding history of smoking who was brought in for surgery for ovarian mass. The patient underwent laparoscopic salpingo-oophorectomy. Following surgery the patient was extubated and in the PACU. She was hypoxic, cyanotic and had to be placed on a Venti-mask and subsequently a BiPAP mask with improvement in oxygenation. Chest x-ray showed bilateral pulmonary infiltrates consistent with pulmonary edema. The patient was given IV Lasix, nebulized bronchodilator with BiPAP. She did improved and subsequently weaned to nasal cannula. She is now on the 7th floor and on O2 at 4 liters but is not able to come off the oxygen due to desaturation on room air. The patient has no shortness of breath, denies chest pain. She is having some tightness in the chest and back and some mild abdominal discomfort, but denies any leg or calf muscle pain, or joint pain. PAST MEDICAL HISTORY: 1. History of ovarian mass. 2. History of diabetes mellitus type 2. 3. History of tubal ligation in the past. 4. Recent salpingo-oophorectomy. HABITS: The patient smoked half to one pack per day for over 40 years and quit two months ago. She drinks alcohol moderately. FAMILY HISTORY: Noncontributory. REVIEW OF SYSTEMS The patient denies recent weight loss, no headaches, blackouts, no urinary symptoms. She has no GI bleed. No nausea or vomiting. She has had no leg or calf muscle pains but has some joint pains of her extremities and denies any depression or anxiety. PHYSICAL EXAMINATION This elderly averagely built white female is in no acute distress. VITAL SIGNS: Blood pressure 130/80, pulse is 85. Respiratory rate 20, temperature is 98.2. HEENT: Head normocephalic. Pupils reactive. Tongue moist. Nasal mucosa injected. Throat was clear. Neck: Supple. No bruits or thyroid enlargement or lymphadenopathy. Chest: Equal movements with occasional crackles over lung bases with wheezes scattered. Heart: The heart sounds are irregular S1-S2. No murmur. No S3. Abdomen: Soft, benign. No masses or organomegaly, mild tenderness in the lower abdomen and mid abdomen. Bowel sounds are active. Extremities: No edema. No calf tenderness. Neuro: Reflexes are 1+ with no gross motor deficits. Cranial nerves grossly intact. Rectal: Exam is deferred. Skin: No lesions. IMPRESSION 1. Pulmonary edema with hypoxemia, resolving. 2. Diabetes mellitus type 2 3. Status post salpingo-oophorectomy. 4. COPD. PLAN The patient has been placed on nebulized DuoNeb solution q.i.d. Continue diuretic therapy, also oxygen will be weaned down to 2 liters on room air in the a.m. and bedside pulmonary function study to be done. The patient will use incentive spirometry 4x a day. EZ pap with nebulizer q.i.d. to be done as well. Hopefully she will be weaned off oxygen over the next two days. Thank you Dr. Zacarias, and Dr. Kaur, for this consultation. MD ARIANE Garza/JANINE /12:26 AM /7:47 AM
[2016-05-06 08:05] VITALS: O2SAT 96
[2016-05-06] MEDS: RESP: ALBUTEROL 2.5 MG/IPRATROPIUM 0.5 MG NEB (SCH) NEB ×3 (08:06→15:53)
[2016-05-06] MEDS: SODIUM CHLORIDE 0.9% FLUSH 10 ML FLUSH IV FLUSH SCH (09:00)
[2016-05-06] MEDS: PANTOPRAZOLE SOD 20 MG DELAYED RELEASE TAB PO SCH (09:15)
[2016-05-06] MEDS: PARoxetine HCL 20 MG TAB PO SCH (09:16)
[2016-05-06] MEDS: ACETAMINOPHEN 325 MG TAB PO PRN (09:16)
[2016-05-06] MEDS: LISINOPRIL 5 MG TAB PO SCH (09:17)
[2016-05-06 11:32] VITALS: O2SAT 93
[2016-05-06 12:00] VITALS: BP 107/58; PULSE 80; RESP 18; TEMP 97.3; O2SAT 94
--- NOTE | 2016-05-06 14:13 | HHI.PR ---
Subjective Remarks Much better today. Off O2 . C XR is better.No cough or SOB. Objective Vital Signs Date Time Temp Pulse Resp B/P Pulse Ox O2 Delivery O2 Flow Rate FiO2 05/06/16 11:32 93 21 05/06/16 08:05 96 Nasal Cannula 1.00 05/06/16 08:00 85 16 120/62 92 05/06/16 06:48 Nasal Cannula 1.00 05/06/16 04:00 96.8 73 17 117/60 94 05/06/16 00:44 19 05/06/16 00:00 97.2 88 18 125/58 92 05/05/16 21:30 92 Nasal Cannula 1.50 05/05/16 21:00 92 Nasal Cannula 1.50 05/05/16 20:00 99.5 90 17 120/59 92 05/05/16 16:00 97.7 78 18 102/58 94 I/O 05/05/16 05/05/16 05/05/16 05/06/16 05/06/16 05/06/16 07:00 15:00 23:00 07:00 15:00 23:00 Intake Total 240 ml 0 ml 240 ml 120 ml Output Total 550 ml Balance -310 ml 0 ml 240 ml 120 ml Intake Oral 240 ml 240 ml 120 ml IV Total 0 ml Output Urine Total 550 ml # Voids 2 2 Result Diagram: 05/05/16185505/05/161855 Objective Remarks This elderly averagely built white female is in no acute distress. HEENT: Head normocephalic. Pupils reactive. Tongue moist. Nasal mucosa injected. Throat was clear. Neck: Supple. No bruits or thyroid enlargement or lymphadenopathy. Chest: Equal movements with decreased breath sounds Heart: The heart sounds are regular S1-S2. No murmur. No S3. Abdomen: Soft, benign. No masses or organomegaly, mild tenderness in the lower abdomen and mid abdomen. Bowel sounds are active. Extremities: No edema. No calf tenderness. Neuro: Reflexes are 1+ with no gross motor deficits. Cranial nerves grossly intact. Rectal: Exam is deferred. Skin: No lesions. Assessment and Plan Assessment and Plan IMPRESSION 1. Pulmonary edema with hypoxemia, resolving. 2. Diabetes mellitus type 2 3. Status post salpingo-oophorectomy. 4. COPD. Plan : 1. D/C o2 . 2. D/C nebs . 3. Continue Ventolin HFA , 2 puffs tid prn. 4. Add Anoro Ellipta , 1puff daily. 5. OK to go home and F/U in 2 weeks Alison Bird MD May 06, 2016 14:13
--- NOTE | 2016-05-06 14:39 | PD.ONC.PN ---
Subjective Subjective Remarks doing well and sob has resolved and off O2 Objective Data Date Time Temp Pulse Resp B/P Pulse Ox O2 Delivery O2 Flow Rate FiO2 05/06/16 12:00 97.3 80 18 107/58 94 05/06/16 11:32 93 21 05/06/16 08:05 96 Nasal Cannula 1.00 05/06/16 08:00 85 16 120/62 92 05/06/16 06:48 Nasal Cannula 1.00 05/06/16 04:00 96.8 73 17 117/60 94 05/06/16 00:44 19 05/06/16 00:00 97.2 88 18 125/58 92 05/05/16 21:30 92 Nasal Cannula 1.50 05/05/16 21:00 92 Nasal Cannula 1.50 05/05/16 20:00 99.5 90 17 120/59 92 05/05/16 16:00 97.7 78 18 102/58 94 05/06/16 05/06/16 05/06/16 07:00 15:00 23:00 Intake Total 120 ml Balance 120 ml Result Diagram: 05/05/16 1856 05/05/16 1856 Laboratory Results Laboratory Tests Test 05/05/16 18:56 White Blood Count 14.8 TH/MM3 Red Blood Count 4.02 MIL/MM3 Hemoglobin 11.9 GM/DL Hematocrit 36.6 % Mean Corpuscular Volume 91.2 FL Mean Corpuscular Hemoglobin 29.6 PG Mean Corpuscular Hemoglobin 32.5 % Concent Red Cell Distribution Width 13.6 % Platelet Count 274 TH/MM3 Mean Platelet Volume 7.9 FL Neutrophils (%) (Auto) 78.5 % Lymphocytes (%) (Auto) 13.8 % Monocytes (%) (Auto) 6.3 % Eosinophils (%) (Auto) 0.7 % Basophils (%) (Auto) 0.7 % Neutrophils # (Auto) 11.6 TH/MM3 Lymphocytes # (Auto) 2.0 TH/MM3 Monocytes # (Auto) 0.9 TH/MM3 Eosinophils # (Auto) 0.1 TH/MM3 Basophils # (Auto) 0.1 TH/MM3 CBC Comment DIFF FINAL Differential Comment Sodium Level 139 MEQ/L Potassium Level 3.5 MEQ/L Chloride Level 101 MEQ/L Carbon Dioxide Level 28.7 MEQ/L Anion Gap 9 MEQ/L Blood Urea Nitrogen 18 MG/DL Creatinine 0.96 MG/DL Estimat Glomerular Filtration 58 ML/MIN Rate Random Glucose 160 MG/DL Calcium Level 9.3 MG/DL Imaging Studies Last 24 hours Impressions Chest X-Ray 05/06/16 0600 Signed Impressions: Service Date/Time: Friday, May 06, 2016 05:46 - CONCLUSION: No acute disease. Aftab Barakat Jr., MD Administered Medications Medications (Trade) Dose Ordered Sig/Nirav Route PRN Reason Start Time Stop Time Status Last Admin Dose Admin Lactated Ringer's (Lr 1000 ml Inj) 1,000 ml @ 30 mls/hr Q24H IV 05/03/16 07:30 05/03/16 06:10 Lisinopril (Prinivil) 5 mg DAILY PO 05/04/16 09:00 05/06/16 09:17 Paroxetine HCl (Paxil) 20 mg DAILY PO 05/04/16 09:00 05/06/16 09:16 Pantoprazole Sodium (Protonix) 20 mg BID PO 05/03/16 21:00 05/06/16 09:15 Sodium Chloride (NS Flush) 2 ml BID IV FLUSH 05/03/16 21:00 05/06/16 09:00 Oxycodone/ Acetaminophen (Percocet 5-325 Mg) 1 tab Q4H PRN PO PAIN SCALE 1 TO 5 05/03/16 10:15 05/04/16 13:37 Oxycodone/ Acetaminophen (Percocet 5-325 Mg) 2 tab Q4H PRN PO PAIN SCALE 6 TO 10 05/03/16 10:15 05/05/16 22:56 Lorazepam (Ativan) 0.25 mg Q8H PRN PO ANXIETY 05/03/16 10:15 05/05/16 15:34 Acetaminophen (Tylenol) 650 mg Q6H PRN PO PAIN 1-10 05/04/16 07:45 05/06/16 09:16 Objective Remarks GENERAL: Well-nourished, well-developed patient. SKIN: Warm and dry. HEAD: Normocephalic. EYES: No scleral icterus. No injection or drainage. NECK: Supple, trachea midline. No JVD or lymphadenopathy. LYMPHATIC: No adenopathy. CARDIOVASCULAR: Regular rate and rhythm without murmurs. RESPIRATORY: Breath sounds equal bilaterally. No accessory muscle use. GASTROINTESTINAL: Abdomen soft, non-tender, nondistended. EXTREMITIES: No cyanosis, or edema. MUSCULOSKELETAL: Adequate muscle tone. NEUROLOGICAL: No obvious focal deficit. Awake, alert, and oriented x3. PSYCHIATRIC: Appropriate mood and affect; insight and judgment normal. Assessment/Plan Assessment 1: patient doing well and acute hypoxia resolved. Spoke with Dr. Bourgeois and she is able to go home with inhalers. she will follow up with Dr. Zacarias. Ulysses Bee MD May 06, 2016 14:39
--- NOTE | 2016-05-06 14:40 | HHI.DCPOC ---
Discharge Care Plan Diagnosis: (1) Ovarian mass Goals to Promote Your Health * To prevent worsening of your condition and complications * To maintain your health at the optimal level Directions to Meet Your Goals Take your medications as prescribed Follow your dietary instruction Follow activity as directed Keep your appointments as scheduled Take your immunizations and boosters as scheduled If your symptoms worsen call your PCP, if no PCP go to Urgent Care Center or Emergency Room Smoking is Dangerous to Your Health. Avoid second hand smoke Call the 24-hour hour crisis hotline for domestic abuse at Emiliana Obrien May 06, 2016 14:40
--- NOTE | 2016-05-06 14:45 | HHI.DS ---
Discharge Summary Admission Date May 03, 2016 at 17:36 Discharge Date: May 06, 2016 Admitting Diagnosis Ovarian Mass (1) Ovarian mass Diagnosis: Principal Procedures Bilateral salpingo Oophrectomy, resection of mass. CBC/BMP: 05/05/166 05/05/166 Significant Findings Laboratory Tests Test 05/04/16 05/05/16 05/05/16 03:44 07:11 18:56 White Blood Count 16.3 TH/MM3 14.8 TH/MM3 (4.0-11.0) (4.0-11.0) Red Blood Count 3.79 MIL/MM3 (4.00-5.30) Hemoglobin 11.3 GM/DL (11.6-15.3) Hematocrit 34.5 % (35.0-46.0) Neutrophils (%) (Auto) 81.2 % 78.5 % (16.0-70.0) (16.0-70.0) Neutrophils # (Auto) 13.2 TH/MM3 11.6 TH/MM3 (1.8-7.7) (1.8-7.7) Estimat Glomerular Filtration 83 ML/MIN (>89) 80 ML/MIN (>89) 58 ML/MIN (>89) Rate Random Glucose 129 MG/DL 166 MG/DL 160 MG/DL (74-106) (74-106) (74-106) Potassium Level 3.4 MEQ/L (3.5-5.1) PE at Discharge See progress note by Dr. Bee on 05/06/16. Pt Condition on Discharge: Good Discharge Disposition: Discharge Home Discharge Instructions DIET: Follow Instructions for: As Tolerated, No Restrictions Activities you can perform: Regular-No Restrictions Emiliana Obrien May 06, 2016 14:44
--- NOTE | 2016-05-06 22:42 | MP ---
cc: DR. GABO RODRIGUEZ KELLY L. MD ARGUELO, MARTHA, MD DATE OF SURGERY May 03, 2016 PREOPERATIVE DIAGNOSIS Cystic pelvic mass. POSTOPERATIVE DIAGNOSIS Left ovarian serous cystadenoma. PROCEDURE Robotic-assisted laparoscopic bilateral salpingo-oophorectomy (resection of approximately 12-13 cm left ovarian cystic mass), lysis of adhesions. SURGEON Irena Zacarias MD PROJECT MANAGER RETAIL [place] electrician's assistant. ANESTHESIA General endotracheal anesthesia. ESTIMATED BLOOD LOSS 75 mL. IV FLUIDS 1100 mL URINE OUTPUT 200 mL HISTORY A 65-year-old female found on exam and imaging to have smooth-walled, a cystic mass seemed to be arising from an ovary and radiographically measured to be between 10 and 11 cm. There was no evidence to suggest metastatic disease. Tumor markers were within normal limits. She was counseled regarding these findings and recommended in favor of definitive surgery. She is seen again in preop holding area. She requested surgery be as conservative as possible. She agrees that she wants both tubes and ovaries removed but if this mass is benign she would like to preserve her uterus and cervix. She understands the pros and cons of that discussion and decision and in keeping with her wishes. She understands that if malignancy is detected we would recommend a full hysterectomy and additional staging biopsies which were again discussed. She understands and agrees. Modifier, there were fairly significant adhesions as this left ovarian mass was partially retroperitonealized and there was surrounding adhesions fixing it to the bowel, the mesentery. STATEMENT OF COMPLEXITY A significant amount of time was spent lysing adhesions as the left ovarian mass was partially retroperitonealized. There were adhesions posteriorly between the colon and the colon mesentery and the wall of the mass and against the left pelvic sidewall and posterior cul-de-sac. Modifier should be applied accordingly. PROCEDURE The patient taken to the operating room, placed in dorsal lithotomy position. After general endotracheal anesthesia was administered time-out was undertaken. The patient was identified by sight recognition and hospital ID bracelet and the proposed procedure was reviewed and confirmed. She was carefully positioned in padded Pepe stirrups. Her arms were padded and secured to the sides. She was further secured to the operating table with egg crate padding and tape in across the chest, over the shoulder fashion. All sites were noted to be properly aligned with no malalignments or pressure points. She was prepped in sterile fashion, draped below the waist, placed in high lithotomy position, cervix grasped, uterine cavity sounded to 7.5 cm. Cervix dilated a small VCare was inserted and secured in the usual fashion. Todd catheter placed in the bladder. She was returned to low lithotomy position. Change of sterile gloves was undertaken. We completed draping in anticipation of laparoscopy, confirmed from anesthesia that orogastric airway was in the stomach on suction. With manual elevation of the abdominal wall a 5 mm cannula was introduced into the peritoneal cavity. Carbon dioxide gas was insufflated and an atraumatic entry was confirmed. Anesthesia was made aware that there was a large amount of air in the stomach. The stomach was dilated as were the transverse colon so that they could manipulate, reposition the OG tube which did not appear to be properly placed and/or suctioning properly. A 12 mm cannula was placed in midline above the umbilicus, 8 mm cannula was in the right upper quadrant and left lateral quadrant and the original 5-mm cannula was exchanged for an 8-mm cannula. She was placed in steep Trendelenburg position. Peritoneal washings were obtained for cytology. Three Ray-Lalita sponges were placed around the root of the small bowel mesentery to help hold the bowel in place. The robotic system was brought into the operative field and attached in the usual fashion. Monopolar scissors, fenestrated bipolar forceps and ProGrasp manipulators were placed in arms number 1,2, and 3 respectively. I took my place at the surgeon's console. Retroperitoneal dissection was carried out on the left lateral and parallel to the gonadal vessels. Lysis of adhesions was initiated to free the mass from its attachments to the colon and colonic mesentery. The mass was elevated such that the adhesions posteriorly could be freed and then retroperitoneal dissection laterally was carried out and the overlying peritoneum was dissected free from the mass, retroperitoneal dissection and freeing the adhesions from the cul-de-sac until the mass could be better mobilized. The left ureter was identified. The left infundibulopelvic ligament was isolated. The intervening peritoneum was opened. The infundibulopelvic ligament was isolated to the level of the pelvic brim where it was cauterized and transected. Further dissection was carried out distally to isolate the left utero-ovarian ligament. The utero-ovarian ligament was isolated, cauterized and transected. The remaining posterior attachments were dissected free using sharp dissection, thereby removing the left tube and ovary which were placed in the left abdomen for later retrieval. Attention was directed toward the right side. Retroperitoneal dissection was initiated lateral and parallel to the right gonadal vessels. The right ureter was identified. The right infundibulopelvic ligament was isolated. The intervening peritoneum was opened. Further dissection distally isolated the right utero-ovarian ligament. The right utero-ovarian ligament was cauterized and transected and the gonadal vessels which had been isolated were elevated and isolated further, cauterized and transected thereby removing the right tube and ovary which were placed in the right pericolic gutter for later retrieval. Small bleeders rendered hemostatic with bipolar cautery. All sites were inspected and noted be hemostatic. Good peristalsis of ureters. The mass appeared to be benign. The uterus was left in situ pending frozen section analysis in keeping with her wishes. The robotic instruments were removed. The robotic system was disengaged from the operative field. I reentered the bedside under sterile condition. Each of the three Ray-Lalita sponges that had been placed were removed. Each were inspected and noted to be removed in their entirety. The 12 millimeter cannula was changed for a 15-mm cannula and a 15 cm EndoCatch bag was used. The normal-appearing right tube and ovary were placed in the base of the bag and then the approximately 12-13 cm cystic mass from the left ovary was placed in the EndoCatch bag and the capsule was still intact. The bag was brought up to the abdominal wall where a small opening was made in capsule of the mass. Clear fluid was drained decreasing the size of the mass which was then brought out through the abdominal wall within an EndoCatch bag containing both tubes and ovaries. The 15 mm fascial defect was closed with interrupted 0 Vicryl sutures using a needle and pass apparatus. They were tied securely which rendered the fascia completely airtight and hemostatic. The remaining cannulas were withdrawn. Carbon dioxide gas was removed from the peritoneal cavity. 3-0 Vicryl subcutaneous, 3-0 Vicryl subcuticular were used to close the skin incisions. Steri-Strips were placed over these incisions. She was returned to dorsal lithotomy position. The VCare manipulator was removed. There were no remaining foreign objects in the vagina. Preliminary and final counts were correct. Silver nitrate was used to rendered the tenaculum sites and peritoneal irritation hemostatic. She was returned to dorsal supine position and was pending reversal of anesthesia when I left the operating room to precede her to the Post Anesthesia Care Unit. MD LUIS Nicolas/VERNON /10:41 AM /10:27 PM
== END 2016-05-06 16:41 | disposition home or self-care (01) | DRG 742 ==
LOC: HSDC 05:29 → HSDI 10:04 → OBSVTOIN 17:36 → HPAC 19:00 → N03A 05-04 06:31 → HOCA 05-04 18:21
PROVIDERS: ADMIT Obstetrics & Gynecology Gynecologic Oncology; ATTEND Obstetrics & Gynecology Gynecologic Oncology
PROC: 0UT74ZZ Resection of Bilateral Fallopian Tubes, Percutaneous Endoscopic Approach (ICD-10-PCS; 2016-05-03)
PROC: 0DNE4ZZ Release Large Intestine, Percutaneous Endoscopic Approach (ICD-10-PCS; 2016-05-03)
PROC: 0DNV4ZZ Release Mesentery, Percutaneous Endoscopic Approach (ICD-10-PCS; 2016-05-03)
PROC: 8E0W4CZ Robotic Assisted Procedure of Trunk Region, Percutaneous Endoscopic Approach (ICD-10-PCS; 2016-05-03)
PROC: 5A09357 Assistance with Respiratory Ventilation, Less than 24 Consecutive Hours, Continuous Positive Airway Pressure (ICD-10-PCS; 2016-05-03)
PROC: 0UT24ZZ Resection of Bilateral Ovaries, Percutaneous Endoscopic Approach (ICD-10-PCS; principal; 2016-05-03 07:23)
DX: D27.1 Benign neoplasm of left ovary (principal); J81.0 Acute pulmonary edema; J96.01 Acute respiratory failure with hypoxia; J38.5 Laryngeal spasm; E11.65 Type 2 diabetes mellitus with hyperglycemia; Z79.84 Long term (current) use of oral hypoglycemic drugs; K66.0 Peritoneal adhesions (postprocedural) (postinfection); K21.9 Gastro-esophageal reflux disease without esophagitis; I10 Essential (primary) hypertension; F32.9 Major depressive disorder, single episode, unspecified; J44.9 Chronic obstructive pulmonary disease, unspecified; Z87.891 Personal history of nicotine dependence
CPT/HCPCS: 36600; 71010; 80048; 80053; 82805; 82948; 85025; 85610; 85730; 86850; 86900; 86901; 88305; 88307; 88331; 94002; 94150; 94640; 94664; J0131; J0690; J1100; J1120; J1130; J1170; J1644; J1940; J2250; J2405; J3010; J3480; J7030; J7120; J7613